=== PATIENT | female | born 2000 | race Caucasian/White ===

== ENCOUNTER 2025-03-29 06:04 | Day surgery (SDC) | payer OTHER, SELFPAY ==
[2025-03-28 13:27] VITALS: BMI 29.4
[2025-03-28 15:17] LABS: APTT 30.0 Sec (23.4-35.0); INR 1.14; PT 14.8 Sec (11.4-14.6)
[2025-03-28 15:29] LABS: Hematocrit 37.7 % (37.0-47.0); Hemoglobin 12.6 g/dL (12.0-16.0); Mean Corp Hgb Conc. 33.4 g/dL (33.0-37.0); Mean Corpuscular Volume 80.2 fL (81.0-99.0); Platelet Count 311 10^3/uL (130-400); Red Cell Dist. Width 12.4 % (11.5-14.5)
[2025-03-28 15:34] LABS: ALT (SGPT) 23 U/L (0-35); AST (SGOT) 22 U/L (14-36); Albumin 4.3 g/dl (3.5-5.0); Alkaline Phosphatase 69 U/L (38-126); Blood Urea Nitrogen 8 mg/dl (7-17); Calcium 9.1 mg/dl (8.4-10.2); Carbon Dioxide 23 mmol/L (22-30); Chloride 104 mmol/L (98-107); Estimated Creatinine Clearance > 125 ml/min; Glucose 79 mg/dl (70-99); Potassium 4.1 mmol/L (3.5-5.1); Sodium 134 mmol/L (135-145); Total Protein 6.9 g/dl (6.3-8.2); eGFR > 60.00
[2025-03-29] VITALS (7 sets, daily range): BP systolic 107–132; BP diastolic 69–81; BMI 29.4
[2025-03-29] MEDS: NEURONTIN 300 MG PO (06:36)
[2025-03-29] MEDS: TYLENOL 1000 MG PO (06:37)
[2025-03-29] MEDS: HEPARIN 5000 UNITS SC (06:37)
[2025-03-29] MEDS: NORMOSOL-R/PLASMALYTE-A 1000 IV (06:38)
--- NOTE | 2025-03-29 09:18 | OR.RPT ---
Operative Report
Operative Report
DATE OF OPERATION: March 29, 2025
PREOPERATIVE DIAGNOSIS: Thyroid Nodule Single - E041
POSTOPERATIVE DIAGNOSIS: Same
SURGEON: Edgar Everett M.D.
OPERATION: Thyroidectomy Limited Neck Dissection - 13472
Autotransplant of the Left Inferior Parathyroid Gland in the Left SCM Muscle- 16171
ANESTHESIA: GET
ESTIMATED BLOOD LOSS: 10 cc
DRAINS: None
SPECIMEN: Left thyroid lobe and isthmus, and left level paratracheal tissue
FINDINGS: Large left thyroid mass
COMPLICATIONS: None
PROCEDURE:
The patient was taken to the operating room and placed in the usual supine position. After adequate general endotracheal anesthesia was established, the patient�s neck was extended, prepped, and draped in the typical sterile fashion. A 5 cm
transcervical incision was made two fingerbreadths above the sternal notch. The skin incision was made with the #15 blade, which was taken through the skin into the subcutaneous tissue. The underlying platysma muscle was divided, and subplatysmal
flaps were created superiorly to the thyroid cartilage and inferiorly to the sternal notch. Strap muscles were identified and at the midline.
Attention was turned to the patient�s left thyroid lobe. The left thyroid lobe was mobilized medially. During this process, the left middle thyroid vein and inferior thyroid artery were dissected and ligated with Ligasure. There was a substernal
extension, which was delivered out of the mediastinum through the cervical incision. Next, the left superior pole was taken down by dissecting and transecting the superior pole vessels with a Ligasure. The left thyroid lobe was mobilized medially.
During this process, the left recurrent laryngeal nerve was identified and preserved throughout its entire course. The left superior and inferior parathyroid glands were identified and preserved. The left thyroid lobe with isthmus was resected from
the trachea and sent to the pathology department.
At this time, the left level neck dissection was performed. The tissue between the left carotid artery to the trachea into the anterior mediastinum was carefully dissected. The previously identified recurrent laryngeal nerve and parathyroid
glands were preserved. The tissue was removed and sent to the pathology department.
The left inferior parathyroid gland appeared ischemic; therefore, a decision was made to autotransplant it. The gland was removed, minced with a #10 blade, and then autotransplanted into the left SCM muscle.
After achieving adequate hemostasis, the strap muscle was approximated with #3-0 Vicryl in a running fashion, and the platysma muscles were reapproximated with #3-0 Vicryl in an interrupted manner. The skin was then closed with #4-0 Monocryl in a
running subcuticular technique. Steri-strips and sterile dressings were applied. The patient tolerated the procedure well. The final instrument, needle, and sponge counts were correct.
[2025-03-29] MEDS: DILAUDID 0.5 MG IV (09:32)
== END 2025-03-29 11:30 | disposition home or self-care (01) ==
LOC: SDS 06:04
PROVIDERS: ATTENDING PHYSICIAN Surgery
DX: D34 Benign neoplasm of thyroid gland (principal); E06.3 Autoimmune thyroiditis; E04.1 Nontoxic single thyroid nodule
CPT/HCPCS: 60252; 80053; 85027; 85610; 85730; 88307